=== PATIENT | female | born 1995 | race Two or more races ===

== ENCOUNTER → 2025-06-10 | Emergency (ER) | payer OTHER ==
[~2025-06-10] VITALS: Ht 167.6 cm; Wt 113.4 kg
[~2025-06-10] MED LIST: ACETAMINOPHEN 500 MG GEL..CAP PO ONE; CEFTRIAXONE SODIUM 1,000 MG VIAL ONE; CEFTRIAXONE SODIUM 2,000 MG VIAL IM ONE; CEFTRIAXONE SODIUM 2,000 MG VIAL ONE; LIDOCAINE HCL 1% 10ML VIAL ONE
[2025-06-10 16:50] LABS: BASO % 0.4 % (0.1-1.2); EOS # 0.12 (0.04-0.54); EOS % 1.6 % (0.7-7.0); LYMPH # 3.20 (1.18-3.74); LYMPH % 43.1 % (19.3-53.1); MEAN PLATELET VOLUME 11.80 fl (9.4-12.4); MONO # 0.31 (0.24-0.82); MONO % 4.2 % (4.7-12.5); NEUT # 3.74 (1.56-6.13); NEUT % 50.4 % (34.0-71.1); RED CELL DISTRIBUTION WIDTH 17.1 % (11.6-14.4)
[2025-06-10 17:24] LABS: INR 0.98
[2025-06-10 17:32] LABS: BUN CREA RATIO 13 (7.0-25.0); CREATININE SERUM 0.91 mg/dL (0.55-1.02); GFR 73.61; GLUCOSE FASTING 103 mg/dL (65-100); OSMOLALITY SERUM 287 MOSM/KG (275-295)
[2025-06-10 17:34] LABS: HCG QUANTITATIVE < 1 mUI/mL (1-3)
[2025-06-10 17:35] LABS: URINE APPEARANCE Cloudy; URINE BILIRRUBIN Negative (NEGATIVE); URINE BLOOD Large; URINE COLOR Yellow; URINE GLUCOSE Negative (NEGATIVE); URINE KETONE Trace (NEGATIVE); URINE LEUKOCYTE Trace; URINE NITRATE Positive; URINE PROTEIN Trace (NEGATIVE); URINE UROBILINOGEN 1.0 E.U./dl
[2025-06-10 17:40] LABS: URINE EPITHELIAL CELLS 89.8 uL (0.0-38.8); URINE RBC 466.9 uL (0.0-20.8); URINE WBC 73.1 uL (0.0-23.2)
[2025-06-10 17:46] LABS: URINE BACTERIA > 9821.5 uL (0.0-1933); URINE CAST 0.56 uL (0.0-1.40)
== END | disposition home or self-care (01) ==
LOC: ER 13:17
PROVIDERS: General Practice
DX: N39.0 Urinary tract infection, site not specified (principal); R10.9 Unspecified abdominal pain; R10.20 Pelvic and perineal pain unspecified side; N91.2 Amenorrhea, unspecified